=== PATIENT | female | born 1975 | race Hispanic/Latino ===

== ENCOUNTER 2017-01-09 15:32 | Outpatient (CLI) | payer OTHER ==
[2017-01-09 17:14] LABS: Blood Urea Nitrogen 10 mg/dL (7-17)
[2017-01-09] MEDS ORDERED: NACL ONE (17:26)
--- NOTE | 2017-01-09 19:00 | Cat Scan Report ---
FINAL REPORT EXAM: CT LOWER EXTREMITY LT W CON HISTORY: CONTUSION OF LEFT LOWER LEG TECHNIQUE: Dynamic helical CT was performed of the left leg after intravenous administration of 100 cc of Omnipaque 300. Images are reconstructed in the sagittal and coronal planes. PRIORS: None. FINDINGS: There is subcutaneous fat edema and swelling of the mid to distal anterolateral lujan and distal lateral leg. A focal thickened area consistent with a hematoma measures 12 mm in thickness by 5.3 cm AP by 9.0 cm craniocaudal. The muscles appear normal. The bones are intact without evidence of fracture. IMPRESSION: 1. Subcutaneous fat edema and swelling is consistent with a hematoma. 2. No evidence of acute fracture.
== END 2017-01-09 15:33 | disposition home or self-care (01) ==
LOC: CT 15:32
PROVIDERS: ATTEND Surgery Vascular Surgery
DX: S80.12XA Contusion of left lower leg, initial encounter (principal); M79.605 Pain in left leg; X58.XXXA Exposure to other specified factors, initial encounter; Y93.89 Activity, other specified; Y92.89 Other specified places as the place of occurrence of the external cause; Y99.8 Other external cause status
CPT/HCPCS: 36415; 73701; 82565; 84520; Q9967